=== PATIENT | male | born 1995 | race African-American/Black ===

== ENCOUNTER 2016-11-06 17:46 | Emergency (ER) | payer BC ==
[~2016-11-06] VITALS: Ht 170.2 cm; Wt 56.7 kg
[2016-11-06] MEDS ORDERED: NAPROSYN500 MG PO (19:49)
[2016-11-06 20:36] VITALS: BP 131/67
== END 2016-11-06 20:38 | disposition home or self-care (01) ==
LOC: ER 17:46
DX: M54.6 Pain in thoracic spine (principal); V49.40XA Driver injured in collision with unspecified motor vehicles in traffic accident, initial encounter; Y93.I9 Activity, other involving external motion; Y92.488 Other paved roadways as the place of occurrence of the external cause; Y99.8 Other external cause status